=== PATIENT | female | born 1990 | race Caucasian/White ===

== ENCOUNTER → 2016-06-27 | Outpatient (CLI) | payer OTHER ==
[~2016-06-27] MED LIST: BCPILLS PO; BIOT50006 PO; LACT1CAP6 PO; MAGN500C PO; MULT-1027 PO
== END | disposition home or self-care (01) ==
LOC: C.PAPS 14:26
PROVIDERS: ATTEND Obstetrics & Gynecology
DX: Z12.4 Encounter for screening for malignant neoplasm of cervix (principal); R87.612 Low grade squamous intraepithelial lesion on cytologic smear of cervix (LGSIL)

== ENCOUNTER 2016-08-19 22:21 | Emergency (ER) | payer OTHER ==
[~2016-08-19] VITALS: Ht 157.5 cm; Wt 65.2 kg
[2016-08-19 22:29] VITALS: TEMP 36.8; Ht 157.5 cm; Wt 65.2 kg
[2016-08-19] MEDS ORDERED: IBUPROFEN 600 MG TAB PO STA (22:38)
[2016-08-19] MEDS ORDERED: HYDROCODONE/ACETAMOPHEN 5/325MG TAB PO ONE (22:45)
--- NOTE | 2016-08-19 22:54 | DIAGNOSTIC IMAGING REPORT ---
LEFT THIRD FINGER 3 VIEWS CLINICAL HISTORY: Third finger injury. FINDINGS: 3 views of left third finger are obtained. No prior studies are available for comparison at the time of dictation. The skeletal structures are well mineralized. No fracture is seen. The third metacarpophalangeal and interphalangeal joints are well-maintained. The overlying soft tissues are within normal limits. IMPRESSION: No acute bony abnormality is seen in the left third finger. Electronically signed by: Pavel Betancourt M.D. 08/19/2016 10:53 PM Dictated Date/Time: 08/19/2016 10:52 PM
[2016-08-19] MEDS ORDERED: BCPILLS PO (22:58)
[2016-08-19] MEDS ORDERED: BIOT50006 PO (22:58)
[2016-08-19] MEDS ORDERED: MULT-1027 PO (22:58)
[2016-08-19] MEDS ORDERED: MAGN500C PO (22:58)
[2016-08-19] MEDS ORDERED: LACT1CAP6 PO (22:58)
[2016-08-19] MEDS ORDERED: NORCO 5/325MG HOME PACK PO ONE (23:15)
[2016-08-19 23:30] VITALS: BP 130/57; PULSE 83; O2SAT 98
--- NOTE | 2016-08-20 00:05 | EMERGENCY ROOM VISIT NOTE ---
ED Visit Note First contact with patient: 22:32 CHIEF COMPLAINT: Finger injury HISTORY OF PRESENT ILLNESS: This 26-year-old female patient presents to the emergency department after injuring the left third finger at work just prior to arrival. The patient rates the pain as dull and 8/10. The patient has limited range of motion of the finger. No numbness or tingling. No lacerations. No other injuries. The patient has not had previous fracture to this finger. The patient has taken nothing for the pain. REVIEW OF SYSTEMS: A 6 system review of systems was completed with positives and pertinent negatives in the HPI. ALLERGIES: No known allergies MEDICATIONS: No chronic medications PMH: Otherwise healthy SOCIAL HISTORY: Employed and lives locally PHYSICAL EXAM: Vital Signs: Reviewed Nurse's notes, vital signs stable. GENERAL : White female, in no acute distress, but appears to be in pain, well-developed , well-nourished. MUSCULOSKELETAL: There is no obvious deformity of the left third finger. The patient has decreased flexion and decreased extension of the left third finger. The PIP joint is maximally tender. There is no ligamentous instability. There is no laceration. Capillary refill less than 2 seconds. No tenderness of the remaining fingers or hand. Full range of motion of the wrist. NEURO: Alert and oriented to person, place, and time. Normal sensation to light and sharp touch. LEFT THIRD FINGER 3 VIEWS CLINICAL HISTORY: Third finger injury. FINDINGS: 3 views of left third finger are obtained. No prior studies are available for comparison at the time of dictation. The skeletal structures are well mineralized. No fracture is seen. The third metacarpophalangeal and interphalangeal joints are well-maintained. The overlying soft tissues are within normal limits. IMPRESSION: No acute bony abnormality is seen in the left third finger. EMERGENCY DEPARTMENT COURSE: Physical exam and history were performed. Nursing notes and EMR were reviewed. The patient appears to have injured her left third finger at work. She does not have gross deformity, but does have difficulty with flexion and extension in full. The patient was given oral Vicodin and ibuprofen here in the department. X-rays were obtained and do not show evidence of fracture or dislocation. On reexamination the patient continued to have some very mild flexion and extension, but this is not full or with full strength. The patient was placed in a metal splint. She will be given a home pack of Vicodin. If she continues to have difficulty with flexion and extension she is to follow with the orthopedic hand specialist. Clinically I do suspect that she has a contusion, and not a flexor or extension rupture. The patient was invited to return to the ER with any new, worsening, or concerning symptoms. Current/Historical Medications Scheduled Biotin (Biotin), 5,000 MCG PO DAILY Control Pills ( Control Pills), 1 TAB PO DAILY Lactobacillus (Probiotic), 1 CAP PO DAILY Magnesium Oxide (Mg Supplement (Magnesium), 500 MG PO DAILY Multiple Vitamin (Multi Vitamin), 1 TAB PO DAILY Allergies Coded Allergies: No Known Allergies (Unverified , 08/19/16) Vital Signs Date Time Temp Pulse Resp B/P Pulse Ox O2 Delivery O2 Flow Rate FiO2 08/19/16 23:30 83 18 130/57 98 08/19/16 22:29 36.8 85 16 131/85 97 Room Air Medications Administered Medications (Trade) Dose Ordered Sig/Vee Route Start Time Stop Time Status Last Admin Dose Admin Ibuprofen (Motrin Tab) 600 mg NOW STAT PO 08/19/16 22:38 08/19/16 22:39 DC 08/19/16 23:15 600 MG Departure Information Impression Primary Impression: Finger injury Dispostion Home / Self-Care Condition FAIR Referrals Martín Ng M.D. (PCP) Tim Naik MD No Doctor, Assigned Forms HOME CARE DOCUMENTATION FORM, Work Instructions, Additional Instructions: Patient was seen and evaluated today in the emergency department fo medical care. Return to work on 08/22/2016. Please excuse. IMPORTANT VISIT INFORMATION Patient Instructions My [facility] Additional Instructions You were seen and evaluated today on an emergency basis only. This is not a substitute for, or an effort to provide, complete comprehensive medical care. It is not possible to recognize and treat all injuries or illnesses in a single emergency department visit. For this reason it is recommended that you followup with Orthopedics, Dr. Naik's office, if symptoms persist over the next 1-2 weeks. For baseline pain relief you may alternate ibuprofen and acetaminophen every 4 hours for pain control. Take 600 mg ibuprofen (Advil) and then 4 hours later take 1000 mg acetaminophen (Tylenol). Do not take more than 3000 mg acetaminophen in a single day. [place] (hydrocodone/acetaminophen) 5/325 mg (homepack) every 6 hours as needed for worsening breakthrough pain. Do not drink or drive on [place]. This medication will likely make you tired. Do not take [place] and Tylenol at the same time as both contain acetaminophen. [place] may cause constipation. You may wish to take an [id number] stool softener like Colace if this occurs. Wear your metal splint for the next 4-5 days then slowly advance activity as tolerated. You are welcome to return to the emergency department anytime with new, worsening, or concerning symptoms. Work Instructions Additional Work Instructions: Patient was seen and evaluated today in the emergency department for medical care. Return to work on 08/22/2016. Please excuse.
== END 2016-08-19 23:26 | disposition home or self-care (01) ==
LOC: C.EDB 22:22 → C.EDC 23:26
DX: S69.92XA Unspecified injury of left wrist, hand and finger(s), initial encounter (principal); Z79.3 Long term (current) use of hormonal contraceptives; Z79.899 Other long term (current) drug therapy; X58.XXXA Exposure to other specified factors, initial encounter; Y99.0 Civilian activity done for income or pay

== ENCOUNTER → 2016-12-23 | Outpatient (CLI) | payer OTHER | END | disposition home or self-care (01) | LOC: C.PAPS 14:49 | PROVIDERS: ATTEND Obstetrics & Gynecology | DX: N87.1 Moderate cervical dysplasia (principal) ==